=== PATIENT | female | born 1975 | race African-American/Black ===

== ENCOUNTER 2023-06-28 23:26 | Emergency (ER) | payer BC ==
[~2023-06-28] VITALS: Ht 167.6 cm; Wt 131.0 kg
[2023-06-28 23:29] VITALS: BP 155/87; PULSE 91; RESP 16; TEMP 98.4; O2SAT 97
[2023-06-29] MEDS ORDERED: ACETAMINOPHEN 325MG TABLET PO STA (00:42)
== END 2023-06-29 01:57 | disposition home or self-care (01) ==
LOC: ER 23:37
DX: R07.89 Other chest pain (principal); E11.9 Type 2 diabetes mellitus without complications; Z90.49 Acquired absence of other specified parts of digestive tract
CPT/HCPCS: 71045; 81025; 93005; 99283